=== PATIENT | male | born 1995 | race Asian ===

== ENCOUNTER 2016-11-25 00:07 | Emergency (ER) | payer MEDICAID ==
[~2016-11-25] VITALS: Ht 172.7 cm; Wt 83.0 kg
[2016-11-25 01:41] VITALS: BP 139/72
== END 2016-11-25 01:41 | disposition home or self-care (01) ==
LOC: ED 00:07
DX: J03.90 Acute tonsillitis, unspecified (principal); F90.9 Attention-deficit hyperactivity disorder, unspecified type; F17.210 Nicotine dependence, cigarettes, uncomplicated; Z71.6 Tobacco abuse counseling; Z79.899 Other long term (current) drug therapy
CPT/HCPCS: 99406; J0696; J1100